=== PATIENT | female | born 1965 | race Caucasian/White ===

== ENCOUNTER 2017-01-02 09:16 | Outpatient (CLI) | payer MEDICAID ==
[2017-01-02 17:56] LABS: BASOPHILS # (AUTO) 0.1 10^3/uL (0.0-0.1); BASOPHILS % (AUTO) 0.8 %; EOSINOPHILS # (AUTO) 0.1 10^3/uL (0.0-0.7); EOSINOPHILS % (AUTO) 1.9 %; HCT - HEMATOCRIT 46.6 % (37.0-47.0); HGB - HEMOGLOBIN 15.3 g/dL (12.0-16.0); LYMPHOCYTES # (AUTO) 1.7 10^3/uL (1.5-3.5); LYMPHOCYTES % (AUTO) 27.7 %; MEAN CORPUSCULAR HEMOGLOBIN 28.5 pg (27.0-31.0); MEAN CORPUSCULAR HGB CONC 32.9 g/dL (32.0-36.0); MEAN CORPUSCULAR VOLUME 86.6 fL (81.0-99.0); MEAN PLATELET VOLUME 8.5 fL (7.9-10.8); MONOCYTES # (AUTO) 0.4 10^3/uL (0.0-1.0); MONOCYTES % (AUTO) 5.8 %; NEUTROPHILS % (AUTO) 63.8 %; NUCLEATED RED BLOOD CELLS AUTO 0.1 /100WBC; RED BLOOD COUNT 5.39 10^6/uL (4.20-5.40); RED CELL DISTRIBUTION WIDTH 13.8 % (12.0-15.0); UNCORRECTED WHITE BLOOD COUNT 6.2 x10^3/uL; WHITE BLOOD COUNT 6.2 x10^3/uL (4.8-10.8)
[2017-01-02 18:27] LABS: ALBUMIN/GLOBULIN RATIO 1.2 (1.0-2.2); BILIRUBIN,TOTAL 0.8 mg/dL (0.2-1.0); BUN - BLOOD UREA NITROGEN 9 mg/dL (6-20); CALCIUM 9.1 mg/dL (8.5-10.3); CARBON DIOXIDE - CO2 25 mmol/L (21-32); CHLORIDE 105 mmol/L (101-111); CHOL/HDL RATIO 6.4 (<4.4); CHOLESTEROL 224 mg/dL; CREATININE 0.7 mg/dL (0.4-1.0); GFR - MDRD 88 (>89); GLUCOSE 108 mg/dL (70-100); HDL CHOLESTEROL 35 mg/dL; LDL/HDL RATIO 4.9 (<4.4); POTASSIUM 3.6 mmol/L (3.5-5.0); SODIUM 138 mmol/L (135-145); TOTAL PROTEIN 7.6 g/dL (6.7-8.2); TRIGLYCERIDES 88 mg/dL; VLDL CHOLESTEROL 18 mg/dL
== END 2017-01-02 09:17 | disposition home or self-care (01) ==
LOC: LAB.F 09:16
PROVIDERS: ATTEND Physician Assistant Medical
DX: Z51.81 Encounter for therapeutic drug level monitoring (principal)
CPT/HCPCS: 36415; 80053; 80061; 84443; 85025

== ENCOUNTER 2017-04-22 08:53 | Outpatient (CLI) | payer MEDICAID ==
[2017-04-22 18:52] LABS: CHOL/HDL RATIO 6.1 (<4.4); CHOLESTEROL 227 mg/dL; HDL CHOLESTEROL 37 mg/dL; LDL/HDL RATIO 4.2 (<4.4); TRIGLYCERIDES 172 mg/dL; VLDL CHOLESTEROL 34 mg/dL
== END 2017-04-22 08:54 | disposition home or self-care (01) ==
LOC: LAB.F 08:53
PROVIDERS: ATTEND Physician Assistant Medical
DX: E78.5 Hyperlipidemia, unspecified (principal)
CPT/HCPCS: 36415; 80061

== ENCOUNTER 2017-07-18 09:35 | Outpatient (CLI) | payer MEDICAID ==
[2017-07-18 18:11] LABS: ALBUMIN 4.1 g/dL (3.2-5.5); ALBUMIN/GLOBULIN RATIO 1.2 (1.0-2.2); ALKALINE PHOSPHATASE 46 IU/L (42-121); ALT ALANINE AMINOTRANSFERASE 16 IU/L (10-60); AST ASPARTATE AMINOTRANSFERASE 16 IU/L (10-42); BILIRUBIN,TOTAL 0.4 mg/dL (0.2-1.0); BUN - BLOOD UREA NITROGEN 10 mg/dL (6-20); CALCIUM 8.9 mg/dL (8.5-10.3); CARBON DIOXIDE - CO2 23 mmol/L (21-32); CHLORIDE 104 mmol/L (101-111); CHOL/HDL RATIO 5.2 (<4.4); CHOLESTEROL 203 mg/dL; CREATININE 0.8 mg/dL (0.4-1.0); GFR - MDRD 75 (>89); GLUCOSE 91 mg/dL (70-100); HDL CHOLESTEROL 39 mg/dL; LDL CHOLESTEROL,CALCULATED 150 mg/dL; LDL/HDL RATIO 3.8 (<4.4); SODIUM 137 mmol/L (135-145); TOTAL PROTEIN 7.5 g/dL (6.7-8.2); VLDL CHOLESTEROL 14 mg/dL
== END 2017-07-18 09:36 | disposition home or self-care (01) ==
LOC: LAB.F 09:35
PROVIDERS: ATTEND Physician Assistant Medical
DX: E78.5 Hyperlipidemia, unspecified (principal); Z51.81 Encounter for therapeutic drug level monitoring
CPT/HCPCS: 36415; 80053; 80061

== ENCOUNTER 2018-07-31 10:55 | Outpatient (CLI) | payer MEDICAID ==
[2018-07-31 18:28] LABS: BASOPHILS # (AUTO) 0.1 10^3/uL (0.0-0.1); BASOPHILS % (AUTO) 1.2 %; EOSINOPHILS # (AUTO) 0.1 10^3/uL (0.0-0.7); EOSINOPHILS % (AUTO) 1.2 %; LYMPHOCYTES # (AUTO) 2.1 10^3/uL (1.5-3.5); LYMPHOCYTES % (AUTO) 32.3 %; MEAN CORPUSCULAR HEMOGLOBIN 27.9 pg (27.0-31.0); MEAN CORPUSCULAR HGB CONC 31.7 g/dL (32.0-36.0); MEAN CORPUSCULAR VOLUME 87.8 fL (81.0-99.0); MEAN PLATELET VOLUME 8.7 fL (7.9-10.8); MONOCYTES # (AUTO) 0.3 10^3/uL (0.0-1.0); MONOCYTES % (AUTO) 4.5 %; NEUTROPHILS # (AUTO) 3.9 10^3/uL (1.5-6.6); NEUTROPHILS % (AUTO) 60.8 %; PLT - PLATELET COUNT 269 10^3/uL (130-450); RED BLOOD COUNT 5.38 10^6/uL (4.20-5.40); RED CELL DISTRIBUTION WIDTH 13.9 % (12.0-15.0); WHITE BLOOD COUNT 6.4 x10^3/uL (4.8-10.8)
[2018-07-31 19:08] LABS: ALKALINE PHOSPHATASE 53 IU/L (42-121); ALT ALANINE AMINOTRANSFERASE 24 IU/L (10-60); AST ASPARTATE AMINOTRANSFERASE 19 IU/L (10-42); BILIRUBIN,TOTAL 0.5 mg/dL (0.2-1.0); BUN - BLOOD UREA NITROGEN 12 mg/dL (6-20); CALCIUM 8.8 mg/dL (8.5-10.3); CARBON DIOXIDE - CO2 26 mmol/L (21-32); CHLORIDE 104 mmol/L (101-111); CHOL/HDL RATIO 4.9 (<4.4); CHOLESTEROL 244 mg/dL; CREATININE 0.6 mg/dL (0.4-1.0); GFR - MDRD 105 (>89); GLUCOSE 84 mg/dL (70-100); HDL CHOLESTEROL 50 mg/dL; LDL CHOLESTEROL,CALCULATED 180 mg/dL; LDL/HDL RATIO 3.6 (<4.4); SODIUM 137 mmol/L (135-145); TOTAL PROTEIN 7.9 g/dL (6.7-8.2); VLDL CHOLESTEROL 14 mg/dL
== END 2018-07-31 10:56 | disposition home or self-care (01) ==
LOC: LAB.F 10:55
PROVIDERS: ATTEND Physician Assistant Medical
DX: Z51.81 Encounter for therapeutic drug level monitoring (principal); E78.5 Hyperlipidemia, unspecified; Z86.39 Personal history of other endocrine, nutritional and metabolic disease
CPT/HCPCS: 36415; 80053; 80061; 83721; 84443; 85025

== ENCOUNTER 2018-08-06 13:16 | Outpatient (CLI) | payer MEDICAID ==
--- NOTE | 2018-08-07 08:57 | Mammography Report ---
Reason: SCREENING MAMMOGRAM NEC Procedure Date: 08/06/2018 Accession Number: [id number] / [id number] Procedure: LAVELL - Screening Mammo w/Maximiliano CPT Code: FULL RESULT: EXAM: Screening Mammo w/Maximiliano DATE: 08/06/2018 1:51 PM CLINICAL HISTORY: Screening encounter. History of early menses. History of benign breast biopsy on the left. TECHNIQUE: Bilateral CC, laterally exaggerated CC, MLO views were obtained. COMPARISON: 08/17/2014 through 02/23/2009. FINDINGS: The breasts demonstrate heterogeneously dense fibroglandular parenchyma bilaterally. 2 biopsy markers in the left breast are stable. No suspicious masses, clustered microcalcifications, or regions of architectural distortion are identified. IMPRESSION: Benign findings RECOMMENDATION: Routine annual screening unless otherwise clinically indicated. BIRADS CATEGORY 2: Benign findings STANDARD QUALIFYING STATEMENTS: 1. This examination was not reviewed with the aid of Computer-Aided Detection (CAD). 2. A negative or benign imaging report should not preclude biopsy if clinically suspicious findings are present. 3. Dense breasts may obscure an underlying neoplasm. 4. This examination was reviewed with the aid of 3D breast imaging (tomosynthesis).
== END 2018-08-06 13:17 | disposition home or self-care (01) ==
LOC: DI 13:16
PROVIDERS: ATTEND Physician Assistant Medical
DX: Z12.31 Encounter for screening mammogram for malignant neoplasm of breast (principal)
CPT/HCPCS: 77063; 77067

== ENCOUNTER 2019-03-03 10:18 | Outpatient (CLI) | payer MEDICAID ==
[2019-03-03 17:58] LABS: BASOPHILS % (AUTO) 0.7 %; EOSINOPHILS # (AUTO) 0.1 10^3/uL (0.0-0.7); EOSINOPHILS % (AUTO) 1.8 %; LYMPHOCYTES # (AUTO) 2.1 10^3/uL (1.5-3.5); LYMPHOCYTES % (AUTO) 33.6 %; MEAN CORPUSCULAR HEMOGLOBIN 28.1 pg (27.0-31.0); MEAN CORPUSCULAR HGB CONC 31.4 g/dL (32.0-36.0); MEAN CORPUSCULAR VOLUME 89.7 fL (81.0-99.0); MEAN PLATELET VOLUME 10.5 fL (7.9-10.8); MONOCYTES # (AUTO) 0.4 10^3/uL (0.0-1.0); MONOCYTES % (AUTO) 5.9 %; NEUTROPHILS # (AUTO) 3.5 10^3/uL (1.5-6.6); NEUTROPHILS % (AUTO) 57.7 %; PLT - PLATELET COUNT 301 10^3/uL (130-450); RED BLOOD COUNT 5.33 10^6/uL (4.20-5.40); RED CELL DISTRIBUTION WIDTH 13.1 % (12.0-15.0); WHITE BLOOD COUNT 6.1 x10^3/uL (4.8-10.8)
[2019-03-03 18:27] LABS: ALBUMIN 3.9 g/dL (3.2-5.5); BILIRUBIN,TOTAL 0.6 mg/dL (0.2-1.0); CALCIUM 8.8 mg/dL (8.5-10.3); CREATININE 0.7 mg/dL (0.4-1.0); TOTAL PROTEIN 7.8 g/dL (6.7-8.2)
== END 2019-03-03 10:19 | disposition home or self-care (01) ==
LOC: LAB.S 10:18
PROVIDERS: ATTEND Physician Assistant Medical
DX: E78.5 Hyperlipidemia, unspecified (principal); Z79.899 Other long term (current) drug therapy
CPT/HCPCS: 36415; 80053; 85025

== ENCOUNTER 2019-04-30 13:35 | Outpatient (CLI) | payer MEDICAID | END 2019-04-30 23:59 | disposition home or self-care (01) | LOC: LAB.R 13:35 | PROVIDERS: ATTEND Physician Assistant Medical | DX: R30.0 Dysuria (principal); R35.0 Frequency of micturition | CPT/HCPCS: 87086 ==

== ENCOUNTER 2019-05-03 11:28 | Outpatient (CLI) | payer MEDICAID ==
[2019-05-03 20:26] LABS: ALBUMIN 3.8 g/dL (3.2-5.5); ALBUMIN/GLOBULIN RATIO 1.1 (1.0-2.2); ALKALINE PHOSPHATASE 45 IU/L (42-121); ALT ALANINE AMINOTRANSFERASE 15 IU/L (10-60); AST ASPARTATE AMINOTRANSFERASE 15 IU/L (10-42); BILIRUBIN,TOTAL 0.5 mg/dL (0.2-1.0); BUN - BLOOD UREA NITROGEN 8 mg/dL (6-20); CALCIUM 8.9 mg/dL (8.5-10.3); CARBON DIOXIDE - CO2 27 mmol/L (21-32); CHLORIDE 106 mmol/L (101-111); CHOL/HDL RATIO 5.2 (<4.4); CHOLESTEROL 215 mg/dL; CREATININE 0.7 mg/dL (0.4-1.0); GFR - MDRD 87 (>89); GLUCOSE 92 mg/dL (70-100); HDL CHOLESTEROL 41 mg/dL; LDL CHOLESTEROL,CALCULATED 161 mg/dL; LDL/HDL RATIO 3.9 (<4.4); SODIUM 139 mmol/L (135-145); TOTAL PROTEIN 7.4 g/dL (6.7-8.2); VLDL CHOLESTEROL 13 mg/dL
[2019-05-03 21:35] LABS: HB2 TOTAL 15.6 g/dL; HEMOGLOBIN A1C 0.65 g/dL
== END 2019-05-03 11:29 | disposition home or self-care (01) ==
LOC: LAB.S 11:28
PROVIDERS: ATTEND Physician Assistant Medical
DX: Z86.39 Personal history of other endocrine, nutritional and metabolic disease (principal); E78.5 Hyperlipidemia, unspecified; R73.01 Impaired fasting glucose; R30.0 Dysuria; R35.0 Frequency of micturition
CPT/HCPCS: 36415; 80053; 80061; 83036; 83721; 84443; 87086; 87181

== ENCOUNTER 2019-06-24 13:25 | Outpatient (CLI) | payer MEDICAID ==
--- NOTE | 2019-06-25 11:05 | XRAY Report ---
Reason: KNEE PAIN, BILATERAL Procedure Date: 06/24/2019 Accession Number: [id number] / [id number] Procedure: XRS - Knee 3 View BILAT CPT Code: Final Report FULL RESULT: EXAM: BILATERAL KNEE RADIOGRAPHY EXAM DATE: 06/24/2019 01:52 PM HISTORY: KNEE PAIN, BILATERAL COMPARISON: None TECHNIQUE: AP, lateral and Merchant, 3 views of each knee FINDINGS: Left: Preserved joint space. Mild spurring at the quadriceps insertion. No arthritis. No joint effusion. No foreign bodies. Right: Preserved joint space. Mild spurring at the quadriceps insertion. No arthritis. No joint effusion. No foreign bodies. IMPRESSION: Mild bilateral enthesopathic spurring at the quadriceps insertions. Otherwise essentially unremarkable exam. RADIA
== END 2019-06-24 13:26 | disposition home or self-care (01) ==
LOC: DI.S 13:25
PROVIDERS: ATTEND Physician Assistant Medical
DX: M76.892 Other specified enthesopathies of left lower limb, excluding foot (principal); M76.891 Other specified enthesopathies of right lower limb, excluding foot

== ENCOUNTER 2019-07-09 07:00 | Outpatient (CLI) | payer MEDICAID | END 2019-07-09 23:59 | disposition home or self-care (01) | LOC: LAB.R 07:00 | PROVIDERS: ATTEND Family Medicine | DX: J02.9 Acute pharyngitis, unspecified (principal) | CPT/HCPCS: 87070 ==

== ENCOUNTER 2020-03-18 20:03 | Emergency (ER) | payer MEDICAID ==
[2020-03-18 20:13] VITALS: BP 151/83
--- NOTE | 2020-03-18 20:20 | ED Physician Documentation ---
PD HPI FEMALE - Stated complaint Stated Complaint: FEMALE - Chief complaint Chief Complaint: UTI - History obtained from History obtained from: Patient - Additional information Additional information: She used an exfoliating facial scrub on her privates about a week ago and subsequently developed a burning rash in the same area. Review of Systems Constitutional: reports: Reviewed and negative Throat: reports: Reviewed and negative Cardiac: reports: Reviewed and negative PD PAST MEDICAL HISTORY - Past Medical History Psych: Anxiety - Past Surgical History Past Surgical History: No - Present Medications Home Medications: Ambulatory Orders Medication Instructions Recorded Confirmed ALPRAZolam [Xanax] 1 mg PO BID 03/14/16 03/14/16 metroNIDAZOLE [Flagyl] 500 mg PO BID #14 tablet 03/14/16 predniSONE [Deltasone] 60 mg PO DAILY 5 Days #15 tablet 03/18/20 - Allergies Allergies/Adverse Reactions: Allergies Allergy/AdvReac Type Severity Reaction Status Date / Time No Known Drug Allergies Allergy Verified 03/18/20 20:09 - Social History Does the pt smoke?: No Smoking Status: Never smoker Does the pt drink ETOH?: No Does the pt have substance abuse?: No - Immunizations Immunizations are current?: Yes PD ED PE NORMAL - Vitals Vital signs reviewed: Yes - General General: Alert and oriented X 3, No acute distress - Female Female : Medical Office Specialist present (Tory GARCIA), Other (Some dermatitis of both external labia, no vesicular lesions.Some dermatitis of both external labia, no vesicular lesions.) - Neuro Neuro: Alert and oriented X 3, Normal speech - Psych Psych: Normal mood, Normal affect Results - Vitals Vitals: Vital Signs - 24 hr 03/18/20 20:09 Temperature 37.3 C Heart Rate 88 Respiratory 16 Rate Blood Pressure 151/83 H O2 Saturation 97 Oxygen O2 Source Room air Departure - Departure Disposition: 01 Home, Self Care Clinical Impression: Contact dermatitis Qualifiers: Contact dermatitis type: irritant Contact dermatitis trigger: cosmetics Qualified Code(s): L24.3 - Irritant contact dermatitis due to cosmetics Condition: Good Record reviewed to determine appropriate education?: Yes Instructions: ED Dermatitis Contact Prescriptions: predniSONE [Deltasone] 60 mg PO DAILY 5 Days #15 tablet Comments: Return if worsening. Follow-up with your doctor regardless.
[2020-03-18] MEDS ORDERED: predniSONE 20 MG TABLET PO STA (20:24)
== END 2020-03-18 20:36 | disposition home or self-care (01) ==
LOC: ED 20:03
DX: L24.3 Irritant contact dermatitis due to cosmetics (principal)
CPT/HCPCS: 99282; 99283; J7512

== ENCOUNTER 2020-06-06 11:23 | Outpatient (CLI) | payer MEDICAID ==
[2020-06-06 16:27] LABS: HCG,QUALITATIVE BLOOD NEGATIVE
[2020-06-06 16:46] LABS: PROLACTIN 6.94 ng/mL
[2020-06-06 17:09] LABS: FOLLICLE STIMULATING HORMONE 50.96 mIU/mL
[2020-06-06 17:10] LABS: LUTEINIZING HORMONE 30.89 mIU/mL
[2020-06-07 05:19] LABS: ESTRADIOL <15 pg/mL
[2020-06-07 05:34] LABS: PROGESTERONE <0.5 ng/mL
== END 2020-06-06 11:24 | disposition home or self-care (01) ==
LOC: LAB.S 11:23
PROVIDERS: ATTEND Physician Assistant
DX: Z00.00 Encounter for general adult medical examination without abnormal findings (principal); Z78.0 Asymptomatic menopausal state; Z86.39 Personal history of other endocrine, nutritional and metabolic disease; F41.9 Anxiety disorder, unspecified
CPT/HCPCS: 36415; 82670; 83001; 83002; 84144; 84146; 84703

== ENCOUNTER 2020-08-07 15:07 | Outpatient (CLI) | payer MEDICAID ==
--- NOTE | 2020-08-07 17:19 | MRI Report ---
PROCEDURE: Brain W/O INDICATIONS: CONTUSION OF EYEBALL. VISUAL CHANGES. TECHNIQUE: Noncontrast axial T1 spin echo, axial T2 fast spin echo, sagittal and axial FLAIR, coronal T2 fast sp in echo, axial gradient echo, axial diffusion and ADC through the brain. COMPARISON: None. FINDINGS: Image quality: Reduced by persistent patient motion, reduced by patient declination of intravenous co ntrast which had been anticipated. CSF Spaces: Basal cisterns are patent. No extra-axial fluid collections. Ventricles are normal in size and shape. Brain: No intracranial masses or hemorrhage. Cardenas/white matter interface is normal. Brainstem appe ars normal. Diffusion-weighted images demonstrate no acute ischemic insult. No chronic ischemic ins ults. Normal intravascular flow voids are present. Skull and face: Calvarium has normal marrow signal. Orbits appear normal. Sinuses: Sinuses and mastoids are clear. IMPRESSION: No trauma to the orbits is found, source of altered vision is not identified. Within the resolution a vailable through MR scanning no trauma to the extraocular muscles or intraocular structures is seen. Direct visualization would provide a more accurate assessment for trauma, however. Minimal microvascular atherosclerotic change involving the brain parenchyma, no trauma or mass is see n. Reviewed by: Jose Elizalde MD on 08/07/2020 5:18 PM PST Approved by: Jose Elizalde MD on 08/07/2020 5:18 PM PST Station ID: [id number]
== END 2020-08-07 15:08 | disposition home or self-care (01) ==
LOC: DI 15:07
PROVIDERS: ATTEND Physician Assistant
DX: H47.211 Primary optic atrophy, right eye (principal); S05.11XS Contusion of eyeball and orbital tissues, right eye, sequela

== ENCOUNTER 2021-05-14 08:00 | Outpatient (CLI) | payer MEDICAID | END 2021-05-14 23:59 | disposition home or self-care (01) | LOC: LAB.S 08:00 | PROVIDERS: ATTEND Physician Assistant Medical | DX: R05.9 Cough, unspecified (principal); Z20.822 Contact with and (suspected) exposure to COVID-19 ==

== ENCOUNTER 2021-07-02 08:00 | Outpatient (CLI) | payer MEDICAID ==
--- NOTE | 2021-07-02 09:03 | XRAY Report ---
PROCEDURE: Knee 3 View LT INDICATIONS: CONTUSION OF LEFT KNEE TECHNIQUE: 3 views of the left knee(s) were acquired. COMPARISON: None. FINDINGS: Bones: No fractures or dislocations. No suspicious bony lesions. Mild to moderate medial and redding lofemoral compartment narrowing. Patellar spur is present. Soft tissues: Mild joint effusion. No suspicious soft tissue calcifications. IMPRESSION: Early degenerative changes. Mild effusion. No visualized acute fracture or dislocation. However, occult injury cannot be excluded . Recommend short interval imaging follow-up in 7-10 days as clinically indicated for additional eval uation. Reviewed by: Yadi Perez MD on 07/02/2021 9:02 AM PST Approved by: Yadi Perez MD on 07/02/2021 9:02 AM PST Station ID: [id number]
--- NOTE | 2021-07-02 09:03 | XRAY Report ---
PROCEDURE: Knee 3 View RT INDICATIONS: CONTUSION OF RIGHT KNEE TECHNIQUE: 3 views of the right knee(s) were acquired. COMPARISON: None. FINDINGS: Bones: No fractures or dislocations. No suspicious bony lesions. Mild medial and patellofemoral co mpartment narrowing. Patellar spurring is noted. Soft tissues: No joint effusion. No suspicious soft tissue calcifications. IMPRESSION: Early degenerative change. No visualized acute fracture or dislocation. However, occult injury cannot be excluded. Recommend short interval imaging follow-up in 7-10 days as clinically shannan cated for additional evaluation. Reviewed by: Yadi Perez MD on 07/02/2021 9:01 AM PST Approved by: Yadi Perez MD on 07/02/2021 9:01 AM PST Station ID: [id number]
== END 2021-07-02 23:59 | disposition home or self-care (01) ==
LOC: DI.S 08:00
PROVIDERS: ATTEND Emergency Medicine
DX: S80.01XA Contusion of right knee, initial encounter (principal); S80.02XA Contusion of left knee, initial encounter; M25.462 Effusion, left knee; M25.461 Effusion, right knee; M17.0 Bilateral primary osteoarthritis of knee

== ENCOUNTER 2021-07-16 08:00 | Outpatient (CLI) | payer MEDICAID | END 2021-07-16 23:59 | LOC: LAB.S 08:00 | PROVIDERS: ATTEND Emergency Medicine | DX: L01.00 Impetigo, unspecified (principal) | CPT/HCPCS: 87070; 87181; 87205 ==

== ENCOUNTER 2022-03-16 10:32 | Emergency (ER) | payer MEDICAID ==
[2022-03-16 10:42] VITALS: BP 133/83
--- OUTSIDE RECORDS SUMMARY | 2022-03-16 11:11 | EXTERNAL MEDICAL SUMMARY RPT | Continuity of Care Document ---
:1965 Author Organization [place] Address [address] [place] [address] Phone Care Team Providers Name Role Phone Unavailable Unavailable Unavailable Chuy Merida Unavailable Unavailable Michael Cyr Unavailable Unavailable Allergies No information. Encounters No information. Functional Status No information. Immunizations No information. Medications date description facility [id number]+0000 mupirocin [facility] [place] [id number]+0000 mupirocin [facility] [place] [phone]+0000 mupirocin [facility] [place] [id number]+0000 mupirocin [facility] [place] [phone]+0000 sulfamethoxazole-trimethoprim [facility] [place] [phone]+0000 sulfamethoxazole-trimethoprim [facility] [place] [id number]+0000 sulfamethoxazole-trimethoprim [facility] [place] [id number]+0000 sulfamethoxazole-trimethoprim [facility] [place] [id number]+0000 sulfamethoxazole-trimethoprim [facility] [place] [phone]+0000 sulfamethoxazole-trimethoprim [facility] [place] [phone]+0000 sulfamethoxazole-trimethoprim [facility] [place] [phone]+0000 sulfamethoxazole-trimethoprim [facility] [place] [phone]+0000 sulfamethoxazole-trimethoprim [facility] [place] [phone]+0000 sulfamethoxazole-trimethoprim [facility] [place] [phone]+0000 sulfamethoxazole-trimethoprim [facility] [place] [phone]+0000 sulfamethoxazole-trimethoprim [facility] [place] [phone]+0000 mupirocin [facility] [place] [phone]+0000 mupirocin [facility] [place] [phone]+0000 sulfamethoxazole-trimethoprim [facility] [place] [phone]+0000 sulfamethoxazole-trimethoprim [facility] [place] [phone]+0000 sulfamethoxazole-trimethoprim [facility] [place] [phone]+0000 sulfamethoxazole-trimethoprim [facility] [place] [phone]+0000 mupirocin [facility] [place] [phone]+0000 mupirocin [facility] [place] silva Problems No information. Procedures date description facility [id number]+0000 Visit Code Hold [facility] [place] [phone]+0000 Visit Code Hold [facility] [place] [phone]+0000 Visit Code Hold [facility] [place] [phone]+0000 Visit Code Hold [facility] [place] Results/Labs No information. Social History date description facility [id number]+0000 Never smoker [facility] [place] [phone]+0000 Never smoker [facility] [place] [phone]+0000 Never smoker [facility] [place] [phone]+0000 Never smoker [facility] [place] Vital Signs date measurement value units [id number]+0000 BMI BMI 30.26 kg/m2 [id number]+0000 BP_diastolic BP_diastolic 74 mmHg [id number]+0000 BP_systolic BP_systolic 115 mmHg [id number]+0000 heart_rate heart_rate 68 /min [id number]+0000 height_metric height_metric 166.37 cm [id number]+0000 height_standard height_standard 65.5 in +0000 respiration_rate respiration_rate 16 /min +0000 temperature_metric temperature_metric 36.33 C +0000 temperature_standard temperature_standard 9 7.4 F +0000 weight_metric weight_metric 83.46 kg +0000 weight_standard weight_standard 184 lb
--- NOTE | 2022-03-16 11:12 | XRAY Report ---
PROCEDURE: Knee 4 View LT INDICATIONS: Trauma TECHNIQUE: 4 views of the left knee were acquired. COMPARISON: Left knee radiographs 07/02/2021. FINDINGS: Bones: No acute fractures or dislocations. No suspicious bony lesions. Small suprapatellar enthesop hyte. There is moderate narrowing of the medial femorotibial compartment joint space. Soft tissues: Small Joint effusion. No suspicious soft tissue calcifications. IMPRESSION: No acute osseous abnormality. If there is clinical concern or persistent symptoms, addit ional imaging such as repeat radiographs or advanced imaging (e.g. CT, MRI) may be helpful for furthe r evaluation. Reviewed by: Jassi Borrego MD on 03/16/2022 10:11 AM ADAM Approved by: Jassi Borrego MD on 03/16/2022 10:11 AM ADAM Station ID: [id number]
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
== END 2022-03-16 11:53 | disposition home or self-care (01) ==
LOC: ED 10:32
DX: S80.02XA Contusion of left knee, initial encounter (principal); W22.8XXA Striking against or struck by other objects, initial encounter
CPT/HCPCS: 99282; 99283

== ENCOUNTER 2022-08-01 07:00 | Outpatient (CLI) | payer MEDICAID | END 2022-08-01 23:59 | disposition home or self-care (01) | LOC: LAB.S 07:00 | PROVIDERS: ATTEND Physician Assistant | DX: R21 Rash and other nonspecific skin eruption (principal); A49.02 Methicillin resistant Staphylococcus aureus infection, unspecified site | CPT/HCPCS: 87070; 87181; 87205 ==

== ENCOUNTER 2022-10-17 19:05 | Emergency (ER) | payer MEDICAID ==
[2022-10-17 19:13] VITALS: BP 130/80
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
[2022-10-17] MEDS ORDERED: SULFAMETH/TRIMETH DS 800/160 MG TABLET PO STA (20:32)
[2022-10-17] MEDS ORDERED: CIPROFLOXACIN 250 MG TABLET PO STA (20:32)
--- NOTE | 2022-10-17 20:35 | ED Physician Documentation ---
History of Present Illness - Stated complaint Stated Complaint: RT EAR PX/DISCOMFORT - Chief complaint Chief Complaint: Heent - History obtained from History obtained from: Patient - History of Present Illness Timing: How many days ago (several) - Additonal information Additional information: 57-year-old female presents to the emergency department complaining of right ear redness and swelling. She states this has happened 4-5 times over the past 6 months. She states that she has been told that it is MRSA. She states she normally is placed on antibiotics, it improves and then recurs. She has never seen ENT. No fevers. No chills. No drainage. 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 - Present Medications Home Medications: Ambulatory Orders Medication Instructions Recorded Confirmed ALPRAZolam [Xanax] 1 mg PO BID 03/14/16 03/14/16 metroNIDAZOLE [Flagyl] 500 mg PO BID #14 tablet 03/14/16 predniSONE [Deltasone] 60 mg PO DAILY 5 Days #15 tablet 03/18/20 Ciprofloxacin HCl [Cipro] 500 mg PO BID #20 tablet 10/17/22 Sulfamethox/Trimeth 800/160 1 each PO BID #20 tablet 10/17/22 [Bactrim Ds 800/160] - Allergies Allergies/Adverse Reactions: Allergies Allergy/AdvReac Type Severity Reaction Status Date / Time No Known Drug Allergies Allergy Verified 10/17/22 19:09 - Social History Does the pt smoke?: No Smoking Status: Never smoker Does the pt drink ETOH?: No Does the pt have substance abuse?: No - Immunizations Immunizations are current?: Yes PD ED PE NORMAL - Vitals Vital signs reviewed: Yes - General General: Alert and oriented X 3, No acute distress - HEENT HEENT: Moist mucous membranes, Other (R ear - erythema and swelling to the pinna. no drainage. ) - Neck Neck: Supple, no meningeal sign - Derm Derm: Warm and dry - Neuro Neuro: Alert and oriented X 3 Results - Vitals Vitals: Vital Signs - 24 hr 10/17/22 19:10 Temperature 36.5 C Heart Rate 83 Respiratory 16 Rate Blood Pressure 130/80 O2 Saturation 94 Oxygen O2 Source Room air PD Medical Decision Making - ED course Complexity details: considered differential, d/w patient ED course: 57-year-old female with perichondritis. We will place her on Cipro and Bactrim. Recommend close follow-up with the ENT, especially as this is recurrent. Patient is well-appearing, nontoxic. Afebrile. Patient counseled regarding signs and symptoms for which I believe and urgent re-evaluation would be necessary. Patient with good understanding of and agreement to plan and is comfortable going home at this time This document was made in part using voice recognition software. While efforts are made to proofread this document, sound alike and grammatical errors may occur. Departure - Departure Disposition: Home, Self Care Clinical Impression: Perichondritis Condition: Good Instructions: ED Otitis Externa Follow-Up: [facility] [Provider Group] [facility] [Provider Group] [facility] [Provider Group] Prescriptions: Sulfamethox/Trimeth 800/160 [Bactrim Ds 800/160] 1 each PO BID #20 tablet Ciprofloxacin HCl [Cipro] 500 mg PO BID #20 tablet Comments: Your symptoms are concerning for perichondritis. Please follow-up with an learning disabled teacher. You may need a referral from your doctor. We need to ensure that the infection is adequately treated otherwise it can cause necrosis of the cartilage in your ear, leading to deformity of your ear and severe infection. Your prescriptions were sent to [facility]. Discharge Date/Time: 10/17/22 20:41
== END 2022-10-17 20:41 | disposition home or self-care (01) ==
LOC: ED 19:05
DX: H61.001 Unspecified perichondritis of right external ear (principal)
CPT/HCPCS: 99282; 99283; A9270